=== PATIENT | male | born 1980 | race African-American/Black ===

== ENCOUNTER 2018-12-04 14:58 | Emergency (ER) | payer OTHER ==
[2018-12-04] MEDS ORDERED: PENICILLIN G BENZATHINE 1.2 MILLION UNIT/2 ML DISP.SYRIN IM ONE (17:31)
[2018-12-04] MEDS ORDERED: LIDOCAINE 1% INJ (10 MG/ML) 10 ML MDV INJ ONE (17:31)
[2018-12-04] MEDS ORDERED: AZITHROMYCIN 250 MG TABLET PO ONE (17:31)
[2018-12-04] MEDS ORDERED: CEFTRIAXONE INJ 250 MG VIAL IM ONE (17:31)
--- NOTE | 2018-12-04 17:57 | ER Document Report ---
HPI - HPI Patient complains to provider of: hands hurt Pain Level: 4 Context: 38-year-old male with no past medical history presents to the emergency department with chief complaint of bilateral hand pain that interrupts his sleep, sore fingertips bilaterally, painful package sealer machine, malaise, and fatigue. Patient states that he has not had fevers, chills, shortness of breath or chest pain, dizziness or lightheadedness, abdominal pain, nausea/vomiting/diarrhea/constipation. Patient states that he did have a sore that was painless on his penis several years ago that resolved on its own. - MUSCULOSKELETAL Musculoskeletal: REPORTS: Extremity pain - rhea hands <LANCE KEITA - Last Filed: 12/04/18 18:18> <VERONIQUE PENA - Last Filed: 12/04/18 21:54> - HPI Time Seen by Provider: 12/04/18 17:30 Past Medical History - Social History Smoking Status: Current Every Day Smoker Frequency of alcohol use: None Drug Abuse: None Family History: Reviewed & Not Pertinent Patient has suicidal ideation: No Patient has homicidal ideation: No Renal/ Medical History: Denies: Hx Peritoneal Dialysis <LANCE KEITA - Last Filed: 12/04/18 18:18> Vertical Provider Document - CONSTITUTIONAL Notes: PHYSICAL EXAMINATION: Reviewed vital signs and charting by RN GENERAL: Alert, interacts well. No acute distress. HEAD: Normocephalic, atraumatic. EYES: Pupils equal and round. Extraocular movements intact. ENT: Oral mucosa moist, tongue midline. NECK: Full range of motion. Trachea midline. LUNGS: Clear to auscultation bilaterally, no wheezes, rales, or rhonchi. No respiratory distress. HEART: Regular rate and rhythm. No murmur ABDOMEN: soft, non-tender. No distention. Bowel sounds present EXTREMITIES: Moves all 4 extremities spontaneously. No edema, No cyanosis. PSYCH: Normal affect, normal mood. SKIN: Warm, dry, normal turgor. Patient with a hyperpigmented diffuse macular rash on bilateral palms and soles with sporadic lesions on his arms - INFECTION CONTROL TRAVEL OUTSIDE OF THE [place] 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 Patient states he had a painless sore on his penis years ago. RPR obtained and patient treated prophylactically with penicillin G 2,400,000 units. I also obtained a urine for chlamydia and gonorrhea and treated prophylactically with Rocephin 250 mg IM and azithromycin 1 g p.o. HIV testing also completed. Results pending. 12/04/18 18:18 All results are pending. Patient received treatment for syphilis, gonorrhea, chlamydia. At this time patient is covered. I have given him strict return precautions and ensure that we have a good follow-up number to call him. Patient is stable for discharge. - Vital Signs Vital signs: Temp Pulse Resp BP Pulse Ox 97.5 F 65 18 113/81 98 12/04/18 15:06 12/04/18 15:06 12/04/18 15:06 12/04/18 15:06 12/04/18 15:06 <LANCE KEITA - Last Filed: 12/04/18 18:18> - Re-evaluation Re-evalutation: 12/04/18 21:53 Laboratory 12/04/18 12/04/18 17:30 17:30 Chlamydia DNA (PCR) NOT DETECTED HIV 1&2 Antibody NEGATIVE N.gonorrhoeae DNA (PCR) NOT DETECTED Patient was seen and examined as requested by [facility]. There is concern for secondary syphilis due to a maculopapular rash on the patient's hand and feet. He does report having a painless sore on his penis approximately 3 to 4 months ago. Patient will be treated for syphilis. RPR is pending. PHYSICAL EXAMINATION: GENERAL: Well-appearing, well-nourished and in no acute distress. HEAD: Atraumatic, normocephalic. EYES: Pupils equal round extraocular movements intact, conjunctiva are normal. ENT: Nares patent NECK: Normal range of motion LUNGS: No respiratory distress Musculoskeletal: Normal range of motion NEUROLOGICAL: Normal speech, normal gait. PSYCH: Normal mood, normal affect. SKIN: Macular papular nonblanching rash on the palms and soles - Vital Signs Vital signs: Temp Pulse Resp BP Pulse Ox 97.8 F 72 18 120/68 98 12/04/18 18:39 12/04/18 18:39 12/04/18 18:39 12/04/18 18:39 12/04/18 18:39 <VERONIQUE PENA E - Last Filed: 12/04/18 21:54> Discharge <LIZANDROGERMÁNLANCE ESPARZA - Last Filed: 12/04/18 18:18> <VERONIQUE PENA E - Last Filed: 12/04/18 21:54> - Discharge Clinical Impression: Rash and nonspecific skin eruption, Bilateral hand pain, Malaise, Concern for syphilis Condition: Good Disposition: HOME, SELF-CARE Additional Instructions: You were seen in the emergency department this afternoon for rash on your hand and bilateral hand pain. You have been treated appropriately with antibiotics. No other treatment is necessary at this time. If any of the results of the lab work are positive you will receive a phone call. It is very important that your partner gets tested. Please refrain from sexual contact with your partner until they are tested. Please return to the emergency department if you develop altered mental status, acute shortness of breath or chest pain, intractable nausea or bloody vomitus, profuse diarrhea or bloody diarrhea, or any other concerning symptoms. Forms: Return to Work
[2018-12-04 18:40] VITALS: BP 120/68
[2018-12-04 19:18] LABS: CHLAM PCR NOT DETECTED (NOT DETECT)
== END 2018-12-04 18:40 | disposition home or self-care (01) ==
LOC: ER 14:58
DX: R21 Rash and other nonspecific skin eruption (principal); M79.641 Pain in right hand; M79.642 Pain in left hand; Z20.2 Contact with and (suspected) exposure to infections with a predominantly sexual mode of transmission; R53.81 Other malaise; R53.83 Other fatigue; F17.200 Nicotine dependence, unspecified, uncomplicated
CPT/HCPCS: 99283; 96372; 36415; 86592; 86701; 87491; 87591; J0561; J0696

== ENCOUNTER 2018-12-07 07:28 | Emergency (ER) | payer OTHER ==
[2018-12-07 07:37] VITALS: BP 129/84
--- NOTE | 2018-12-07 08:14 | ER Document Report ---
ED General - General Chief Complaint: Hand Pain Stated Complaint: HAND PAIN Time Seen by Provider: 12/07/18 08:09 TRAVEL OUTSIDE OF THE [place] IN LAST 30 DAYS: No - HPI Notes: 38-year-old male to the emergency department with complaints of right wrist pain that has been ongoing for the past week. States that it has been getting better but he is here for 1 more day off of work to let it rest. 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 Patient states that the hand was swollen and he had tingling into his fingertips but that has gotten better with rest. He was seen here on the for the same and did not have an x-ray at that time. He denies any specific injury and does not want an x-ray today. He is right-hand dominant. He has not been using a splint or any [id number] medicines. - Related Data Allergies/Adverse Reactions: No Known Allergies Allergy (Verified 12/07/18 07:29) Past Medical History - General Information source: Patient - Social History Smoking Status: Current Every Day Smoker Frequency of alcohol use: None Drug Abuse: None Family History: Reviewed & Not Pertinent Patient has suicidal ideation: No Patient has homicidal ideation: No Renal/ Medical History: Denies: Hx Peritoneal Dialysis Review of Systems - Review of Systems Constitutional: denies: Chills, Fever EENT: No symptoms reported Cardiovascular: denies: Chest pain, Palpitations, Syncope, Dizziness, Lightheaded Respiratory: denies: Cough, Short of breath Gastrointestinal: denies: Abdominal pain, Diarrhea, Nausea, Vomiting Genitourinary: No symptoms reported Musculoskeletal: Joint swelling, Muscle pain - Right wrist and hand pain and swelling Skin: No symptoms reported. denies: Rash Neurological/Psychological: Numbness, Tingling - Numbness and tingling down into right fingertips of the index and middle finger -: Yes All other systems reviewed and negative Physical Exam - Vital signs Vitals: Temp Pulse Resp BP Pulse Ox 97.8 F 83 18 129/84 H 97 12/07/18 07:29 12/07/18 07:29 12/07/18 07:29 12/07/18 07:29 12/07/18 07:29 Interpretation: Normal - General General appearance: Appears well, Alert - HEENT Head: Normocephalic, Atraumatic Eyes: Normal Pupils: PERRL - Respiratory Respiratory status: No respiratory distress Chest status: Nontender Breath sounds: Normal Chest palpation: Normal - Cardiovascular Rhythm: Regular Heart sounds: Normal auscultation Murmur: No - Extremities General upper extremity: Normal inspection, Tender - Mild tenderness to palpation over the right wrist joint with no edema, ecchymosis, deformity. Negative Tinel's and negative Phalen's. Computer Numerical Control Operator is 5 out of 5 bilaterally. Nontender to palpation over the right elbow joint as well as the right palm of the hand and to all fingers. Full range of motion in bilateral upper extremity against resistance in flexion extension with 5 out of 5 strength. No snuffbox tenderness mid Shoulder: Normal Arm: Normal Elbow: Normal Forearm: Normal Wrist: Tender. No: Abrasion, Dislocation, Ecchymosis, Navicular tenderness - Neurological Neuro grossly intact: Yes Cognition: Normal Orientation: AAOx4 [place] Coma Scale Eye Opening: Spontaneous Jace Coma Scale Verbal: Oriented Jace Coma Scale Motor: Obeys Commands Jace Coma Scale Total: 15 Speech: Normal Motor strength normal: LUE, RUE, LLE, RLE Sensory: Normal - Psychological Associated symptoms: Normal affect, Normal mood - Skin Skin Temperature: Warm Skin Moisture: Dry Skin Color: Normal Course - Vital Signs Vital signs: Temp Pulse Resp BP Pulse Ox 97.8 F 83 18 129/84 H 97 12/07/18 07:29 12/07/18 07:29 12/07/18 07:29 12/07/18 07:29 12/07/18 07:29 - Transfer of Care Notes: 12/07/18 08:34 Impression: Right wrist and hand pain likely from overuse syndrome. Some aspects of patient's pain suggests possibly an early carpal tunnel syndrome however he has a negative Phalen's and Tinel's. Did offer an x-ray today however patient does not want one. Will place in a Velcro wrist splint and write for NSAIDs. We will give today off and have him return to work thereafter. We will give orthopedic follow-up. Discharge - Discharge Clinical Impression: Right wrist pain, Right hand pain, Overuse injury Condition: Good Disposition: HOME, SELF-CARE Instructions: Muscle Strain ([facility]) Additional Instructions: Wear Splint. Take medicines as prescribed. rest the wrist and hand as much as possible. If pain persists beyond this week, follow up with orhtopedist. Return here immediately if any worsening joint swelling, redness, pus draining from hand, fevers, or any other concerns. Prescriptions: Naproxen [Naprosyn] 500 mg PO BID #20 tablet Forms: Return to Work Referrals: HARRIETT MATTSON MD [ACTIVE STAFF] - Follow up as needed
== END 2018-12-07 08:45 | disposition home or self-care (01) ==
LOC: ER 07:28
DX: T14.90XA Injury, unspecified, initial encounter (principal); X58.XXXA Exposure to other specified factors, initial encounter; M79.18 Myalgia, other site; R20.0 Anesthesia of skin; R20.2 Paresthesia of skin; M25.40 Effusion, unspecified joint; F17.200 Nicotine dependence, unspecified, uncomplicated
CPT/HCPCS: 99283; L3908

== ENCOUNTER 2018-12-20 14:06 | Emergency (ER) | payer SELFPAY ==
[2018-12-20 14:16] VITALS: BP 130/86
== END 2018-12-20 15:45 | disposition left against medical advice (07) ==
LOC: ER 14:06
DX: Z53.21 Procedure and treatment not carried out due to patient leaving prior to being seen by health care provider (principal); M79.641 Pain in right hand; M79.642 Pain in left hand

== ENCOUNTER 2019-05-17 11:01 | Emergency (ER) | payer SELFPAY ==
--- NOTE | 2019-05-17 12:27 | ER Document Report ---
ED Medical Screen (RME) - General Chief Complaint: Chest Pain Stated Complaint: CHEST PAIN Time Seen by Provider: 05/17/19 12:19 Mode of Arrival: Ambulatory Information source: Patient Notes: This 38-year-old male with history of cocaine and vaping presents emergency department with chest pain. Reports it started in his back came to the front. Reports symptoms for the past 2 days. Denies fever vomiting diarrhea. Reports it hurts more when he leans forward or takes a deep breath. Denies history of cardiac disease. I have greeted and performed a rapid initial assessment of this patient. A comprehensive ED assessment and evaluation of the patient, analysis of test results and completion of the medical decision making process will be conducted by additional ED providers. Dictation of this chart was performed using voice recognition software; therefore, there may be some unintended grammatical errors. TRAVEL OUTSIDE OF THE [place] IN LAST 30 DAYS: No - Related Data Allergies/Adverse Reactions: No Known Allergies Allergy (Verified 05/17/19 12:17) Past Medical History - Social History Chew tobacco use (# tins/day): No Frequency of alcohol use: Occasional Drug Abuse: Marijuana Renal/ Medical History: Denies: Hx Peritoneal Dialysis Physical Exam - Vital signs Vitals: Temp Pulse Resp BP Pulse Ox 98.2 F 66 18 128/85 H 99 05/17/19 11:28 05/17/19 11:28 05/17/19 11:28 05/17/19 11:28 05/17/19 11:28 Course - Vital Signs Vital signs: Temp Pulse Resp BP Pulse Ox 98.2 F 66 18 128/85 H 99 05/17/19 12:17 05/17/19 12:17 05/17/19 12:17 05/17/19 12:17 05/17/19 12:17
[2019-05-17 12:49] LABS: ABSOLUTE EOSINOPHILS # (AUTO) 0.1 10^3/uL (0.0-0.6); ABSOLUTE MONOCYTES (AUTO) 0.5 10^3/uL (0.1-1.4); ABSOLUTE NEUT (AUTO) 3.3 10^3/uL (1.7-8.2); BASOPHILS % (AUTO) 0.5 % (0-2); EOSINOPHILS % (AUTO) 1.9 % (0-6); HEMATOCRIT 42.8 % (37.9-51.0); HEMOGLOBIN 14.4 g/dL (13.5-17.0); LYMPHOCYTES % (AUTO) 21.1 % (13-45); MEAN CORPUSCULAR HEMOGLOBIN 30.9 pg (27.0-33.4); MEAN CORPUSCULAR HGB CONC 33.6 g/dL (32.0-36.0); MEAN CORPUSCULAR VOLUME 92 fl (80-97); MONOCYTES % (AUTO) 9.3 % (3-13); PLATELET COUNT 294 10^3/uL (150-450); RED BLOOD COUNT 4.65 10^6/uL (4.35-5.55); RED CELL DISTRIBUTION WIDTH 13.6 % (11.5-14.0); SEGMENTED NEUTROPHILS % (AUTO) 67.2 % (42-78); TOTAL CELLS COUNTED % (AUTO) 100 %; WHITE BLOOD COUNT 4.9 10^3/uL (4.0-10.5)
[2019-05-17 13:03] LABS: ALBUMIN 4.2 g/dL (3.5-5.0); ALKALINE PHOSPHATASE 55 U/L (38-126); ANION GAP 10 (5-19); ASPARTATE AMINO TRANSFERASE 83 U/L (17-59); BILIRUBIN,DIRECT 0.1 mg/dL (0.0-0.4); BILIRUBIN,TOTAL 0.8 mg/dL (0.2-1.3); BLOOD UREA NITROGEN 12 mg/dL (7-20); CALCIUM 9.4 mg/dL (8.4-10.2); CARBON DIOXIDE 29 mmol/L (22-30); CHLORIDE 101 mmol/L (98-107); CREATINE KINASE 122 U/L (55-170); GLUCOSE 87 mg/dL (75-110); POTASSIUM 4.8 mmol/L (3.6-5.0); TOTAL PROTEIN 7.7 g/dL (6.3-8.2)
--- NOTE | 2019-05-17 14:38 | RADIOLOGY REPORT (SQ) ---
EXAM DESCRIPTION: CHEST 2 VIEWS COMPLETED DATE/TIME: 05/17/2019 2:29 pm REASON FOR STUDY: CHEST PAIN COMPARISON: None. EXAM PARAMETERS: NUMBER OF VIEWS: two views TECHNIQUE: PA and lateral views of the chest were obtained. RADIATION DOSE: NA LIMITATIONS: none FINDINGS: LUNGS AND PLEURA: No consolidation, pleural effusion or pneumothorax. MEDIASTINUM AND HILAR STRUCTURES: No mediastinal or hilar contour abnormality. HEART AND VASCULAR STRUCTURES: The cardiac silhouette and pulmonary vasculature are within normal alas its. BONES: No acute findings. HARDWARE: None in the chest. OTHER: No other finding. IMPRESSION: No acute cardiopulmonary process. TECHNICAL DOCUMENTATION: JOB ID: [id number] [employer]- All Rights Reserved Reading location - IP/workstation name: [email or web address]
[2019-05-17 16:55] LABS: APPEARANCE,URINE CLEAR; BILIRUBIN,URINE NEGATIVE (NEGATIVE); COLOR,URINE YELLOW; GLUCOSE, URINE NEGATIVE (NEGATIVE); KETONES,URINE NEGATIVE (NEGATIVE); LEUKOCYTE ESTERASE,URINE NEGATIVE (NEGATIVE); NITRITE,URINE NEGATIVE (NEGATIVE); PROTEIN,URINE NEGATIVE (NEGATIVE); URINE SPECIFIC GRAVITY 1.019
[2019-05-17 17:11] LABS: URINE AMPHETAMINES SCREEN NEGATIVE; URINE BARBITURATES SCREEN NEGATIVE; URINE BENZODIAZEPINES SCREEN NEGATIVE; URINE COCAINE SCREEN NEGATIVE; URINE METHADONE SCREEN NEGATIVE; URINE PHENCYCLIDINE SCREEN NEGATIVE
[2019-05-17 17:17] LABS: URINE MARIJUANA (THC) SCREEN UNCONFIRMED POSITIVE
--- NOTE | 2019-05-17 18:12 | ER Document Report ---
ED Cardiac - General Chief Complaint: Chest Pain Stated Complaint: CHEST PAIN Time Seen by Provider: 05/17/19 12:19 Primary Care Provider: FREDDY HAMM MD [ACTIVE STAFF] - Follow up as needed NAYANA SNYDER MD [ACTIVE STAFF] - Follow up as needed Mode of Arrival: Ambulatory Information source: Patient Notes: Patient reports injecting cocaine 2 days ago. Patient states he developed chest pain 2 days ago and was concerned it was due to his drug use. Patient denies any cough cold symptoms nausea or vomiting. Patient does complain of pain with deep inspiration. No fever. 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 Patient states that he could have some soreness from the exertion. TRAVEL OUTSIDE OF THE [place] IN LAST 30 DAYS: No - HPI Patient complains to provider of: Chest pain. denies: Palpitations, Shortness of breath Use of: Cocaine Chest pain location: Under breast Quality of pain: Pressure Pain level currently: 2 Cardiac risk factors: Smoker. denies: Diabetes, Hypertension, + Family history, Dyslipidemia, Hx CHF, Hx VT Positive cardiac history: No Associated symptoms: denies: Abdominal pain, Diaphoresis, Dizziness, Edema, Fatigue, Fever/chills, Headache, Hypotension, Jaw pain, Lightheaded, Nausea/vomiting, Neck pain, Palpitations, Shortness of breath, Syncope Exacerbated by: Denies Relieved by: Nothing Similar symptoms previously: No Recently seen / treated by doctor: No - Related Data Allergies/Adverse Reactions: No Known Allergies Allergy (Verified 05/17/19 12:17) Past Medical History - General Information source: Patient - Social History Smoking Status: Current Every Day Smoker Chew tobacco use (# tins/day): No Frequency of alcohol use: Occasional Drug Abuse: Cocaine, Heroin, Marijuana Occupation: Foodservice Lives with: Family Family History: Reviewed & Not Pertinent Patient has suicidal ideation: No Patient has homicidal ideation: No - Medical History Medical History: Negative Renal/ Medical History: Denies: Hx Peritoneal Dialysis Surgical Hx: Negative Review of Systems - Review of Systems Constitutional: No symptoms reported. denies: Fever, Weight loss, Recent illness EENT: No symptoms reported Cardiovascular: Chest pain. denies: Palpitations, Heart racing, Dyspnea, Syncope, Dizziness, Lightheaded Respiratory: Hurts to breathe - With deep inspiration. denies: Cough, Short of breath Gastrointestinal: No symptoms reported. denies: Abdominal pain, Vomiting Genitourinary: No symptoms reported. denies: Dysuria, Flank pain Male Genitourinary: No symptoms reported Musculoskeletal: No symptoms reported. denies: Back pain, Neck pain Skin: No symptoms reported Hematologic/Lymphatic: No symptoms reported Neurological/Psychological: No symptoms reported Physical Exam - Vital signs Vitals: Temp Pulse Resp BP Pulse Ox 98.2 F 66 18 128/85 H 99 05/17/19 11:28 05/17/19 11:28 05/17/19 11:28 05/17/19 11:28 05/17/19 11:28 - General General appearance: Appears well, Alert In distress: None - HEENT Head: Normocephalic, Atraumatic Eyes: Normal Conjunctiva: Normal Pupils: PERRL Nasal: Normal Mouth/Lips: Normal Mucous membranes: Normal Pharynx: Normal Neck: Normal, Supple. No: Lymphadenopathy - Respiratory Respiratory status: No respiratory distress Chest status: Tender Breath sounds: Normal Chest palpation: Normal. No: Tender - Cardiovascular Rhythm: Regular Heart sounds: S1 appreciated, S2 appreciated Murmur: No - Abdominal Inspection: Normal Distension: No distension Bowel sounds: Normal Tenderness: Nontender Organomegaly: No organomegaly - Back Back: Normal, Nontender. No: CVA tenderness - Extremities General upper extremity: Normal inspection, Normal ROM General lower extremity: Normal inspection, Normal ROM - Neurological Neuro grossly intact: Yes Cognition: Normal [place] Coma Scale Eye Opening: Spontaneous Jace Coma Scale Verbal: Oriented Jace Coma Scale Motor: Obeys Commands Jace Coma Scale Total: 15 - Psychological Associated symptoms: Normal affect, Normal mood - Skin Skin Temperature: Warm Skin Moisture: Dry Skin Color: Normal Course - Re-evaluation Re-evalutation: 05/17/19 17:[address] Andrade regarding patient presentation, reviewed labs and EKG. Dr. Andrade recommends repeating troponin and if negative may discharge patient at this time. 05/17/19 20:00 Patient's repeat troponin was negative. Patient with a heart score of 1. No concern for PE. The patient has atypical chest pain as the patient's chest pain is not suggestive of pulmonary embolus, cardiac ischemia, aortic dissection, or other serious etiology. Given the extremely low risk of these diagnoses, e valuation for these possibilities does not appear to be indicated at this time. Patient has been instructed to return if the symptoms worsen or change in any way. 05/17/19 20:48 - Vital Signs Vital signs: Temp Pulse Resp BP Pulse Ox 98.3 F 65 18 123/77 100 05/17/19 20:24 05/17/19 20:24 05/17/19 20:24 05/17/19 20:24 05/17/19 20:24 - Laboratory Result Diagrams: 05/17/19 12:14 05/17/19 12:14 Laboratory results interpreted by me: 05/17/19 05/17/19 12:14 16:32 AST 83 H Urine Urobilinogen 2.0 H 05/17/19 20:47 Labs- Entire Visit 05/17/19 05/17/19 05/17/19 12:14 12:14 12:14 WBC 4.9 RBC 4.65 Hgb 14.4 Hct 42.8 MCV 92 MCH 30.9 MCHC 33.6 RDW 13.6 Plt Count 294 Lymph % (Auto) 21.1 [place] % (Auto) 9.3 Eos % (Auto) 1.9 Baso % (Auto) 0.5 Absolute Neuts (auto) 3.3 Absolute Lymphs (auto) 1.0 Absolute Monos (auto) 0.5 Absolute Eos (auto) 0.1 Absolute Basos (auto) 0.0 Seg Neutrophils % 67.2 Sodium 140.0 Potassium 4.8 Chloride 101 Carbon Dioxide 29 Anion Gap 10 BUN 12 Creatinine 1.05 Est GFR ( Amer) > 60 Est GFR (MDRD) Non-Af > 60 Glucose 87 Calcium 9.4 Total Bilirubin 0.8 Direct Bilirubin 0.1 Neonat Total Bilirubin Not Reportable Neonat Direct Bilirubin Not Reportable Neonat Indirect Bili Not Reportable AST 83 H ALT 164 Alkaline Phosphatase 55 Creatine Kinase 122 Troponin I < 0.012 Total Protein 7.7 Albumin 4.2 Urine Color Urine Appearance Urine pH Ur Specific Jeannette Urine Protein Urine Glucose (UA) Urine Ketones Urine Blood Urine Nitrite Urine Bilirubin Urine Urobilinogen Ur Leukocyte Esterase Urine WBC (Auto) Squamous Epi Cells Auto Urine Mucus (Auto) Urine Ascorbic Acid Urine Opiates Screen Urine Methadone Screen Ur Barbiturates Screen Ur Phencyclidine Scrn Ur Amphetamines Screen U Benzodiazepines Scrn Urine Cocaine Screen U Marijuana (THC) Screen 05/17/19 05/17/19 05/17/19 16:32 16:32 19:04 WBC RBC Hgb Hct MCV MCH MCHC RDW Plt Count Lymph % (Auto) [place] % (Auto) Eos % (Auto) Baso % (Auto) Absolute Neuts (auto) Absolute Lymphs (auto) Absolute Monos (auto) Absolute Eos (auto) Absolute Basos (auto) Seg Neutrophils % Sodium Potassium Chloride Carbon Dioxide Anion Gap BUN Creatinine Est GFR ( Amer) Est GFR (MDRD) Non-Af Glucose Calcium Total Bilirubin Direct Bilirubin Neonat Total Bilirubin Neonat Direct Bilirubin Neonat Indirect Bili AST ALT Alkaline Phosphatase Creatine Kinase Troponin I < 0.012 Total Protein Albumin Urine Color YELLOW Urine Appearance CLEAR Urine pH 5.0 Ur Specific Jeannette 1.019 Urine Protein NEGATIVE Urine Glucose (UA) NEGATIVE Urine Ketones NEGATIVE Urine Blood NEGATIVE Urine Nitrite NEGATIVE Urine Bilirubin NEGATIVE Urine Urobilinogen 2.0 H Ur Leukocyte Esterase NEGATIVE Urine WBC (Auto) 0 Squamous Epi Cells Auto <1 Urine Mucus (Auto) FEW Urine Ascorbic Acid NEGATIVE Urine Opiates Screen NEGATIVE Urine Methadone Screen NEGATIVE Ur Barbiturates Screen NEGATIVE Ur Phencyclidine Scrn NEGATIVE Ur Amphetamines Screen NEGATIVE U Benzodiazepines Scrn NEGATIVE Urine Cocaine Screen NEGATIVE U Marijuana (THC) Screen UNCONFIRMED POSITIVE - Diagnostic Test Radiology reviewed: Reports reviewed - EKG Interpretation by Me EKG shows normal: Sinus rhythm Rate: Normal Rhythm: NSR Additional EKG results interpreted by me: 05/17/19 20:[address] elevation, QTc 425 Discharge - Discharge Clinical Impression: Chest pain Qualifiers: Chest pain type: unspecified Qualified Code(s): R07.9 - Chest pain, unspecified Condition: Stable Disposition: HOME, SELF-CARE Instructions: Chest Wall Pain ([facility]), Chest Pain of Unclear Cause ([facility]) Additional Instructions: Return immediately for any new or worsening symptoms Followup with your primary care provider, call tomorrow to make a followup appointment Stop using recreational drugs You were seen today for chest pain. The exact cause of your pain is unclear. However, based on your cardiac enzyme testing, chest x-ray, and EKG it does not appear that it is from an immediately life-threatening cause at this time. Although your testing here is normal is critical that you follow-up with your primary care physician for continued evaluation of this chest pain and possible stress testing. I recommended you see your physician within the next 24-48 hours to be evaluated for consideration of a stress test. Please return to emergency department immediately if you have worsening of your chest pain, shortness of breath, vomiting, become unable to exert yourself due to pain or difficulty breathing, you pass out, or have any pain that radiates into your arms, jaw, or back. Please also return if you have any additional symptoms that are concerning to you. Prescriptions: Naproxen [Naprosyn 250 Nmg Tablet] 1 tab PO BID #14 tablet Forms: Smoking Cessation Education, Return to Work Referrals: FREDDY HAMM MD [ACTIVE STAFF] - Follow up as needed NAYANA SNYDER MD [ACTIVE STAFF] - Follow up as needed
[2019-05-17 20:22] VITALS: BP 123/77
--- NOTE | 2019-05-18 00:03 | EKG REPORT ---
SEVERITY:- ABNORMAL ECG - ATRIAL FIBRILLATION PAIRED VENTRICULAR PREMATURE COMPLEXES BORDERLINE LEFT AXIS DEVIATION ABNORMAL T, CONSIDER ISCHEMIA, LATERAL LEADS : Confirmed by: Heide Lopez MD 18-May-2019 00:02:38
--- NOTE | 2019-05-18 19:11 | EKG REPORT ---
SEVERITY:- NORMAL ECG - SINUS RHYTHM : Confirmed by: Heide Lopez MD 18-May-2019 19:11:02
== END 2019-05-17 20:24 | disposition home or self-care (01) ==
LOC: ER 11:01
DX: R07.89 Other chest pain (principal); R07.1 Chest pain on breathing; F14.10 Cocaine abuse, uncomplicated; F11.10 Opioid abuse, uncomplicated; F12.10 Cannabis abuse, uncomplicated; F17.200 Nicotine dependence, unspecified, uncomplicated
CPT/HCPCS: 36415; 71046; 80053; 80307; 81001; 82550; 84484; 85025; 93005; 93010; 99285

== ENCOUNTER 2019-12-08 05:01 | Emergency (ER) | payer SELFPAY ==
[2019-12-08 09:40] VITALS: BP 122/80
--- NOTE | 2019-12-08 19:18 | EKG REPORT ---
SEVERITY:- ABNORMAL ECG - SINUS RHYTHM PROBABLE LEFT ATRIAL ABNORMALITY LEFT VENTRICULAR HYPERTROPHY : Confirmed by: Tamera Kwong 08-Dec-2019 19:17:35
== END 2019-12-08 11:00 | disposition left against medical advice (07) ==
LOC: ER 05:01
DX: Z53.21 Procedure and treatment not carried out due to patient leaving prior to being seen by health care provider (principal)
CPT/HCPCS: 93005; 93010

== ENCOUNTER 2019-12-09 13:52 | Emergency (ER) | payer SELFPAY ==
[2019-12-09 14:19] VITALS: BP 116/87
--- NOTE | 2019-12-09 14:39 | ER Document Report ---
HPI - HPI Time Seen by Provider: 12/09/19 14:24 Pain Level: 2 Context: Patient is a 39-year-old male who presents the emergency department with a chief complaint of of left foot itchiness. Patient states that he thought he may be got a bug bite and continue to scratch the area. - ROS Systems Reviewed and Negative: Yes All other systems reviewed and negative - CONSTITUTIONAL Constitutional: DENIES: Fever, Chills - NEURO Neurology: DENIES: Weakness - MUSCULOSKELETAL Musculoskeletal: REPORTS: Extremity pain - Left dorsal foot. DENIES: Swelling - DERM Skin Problems: Abrasion - Left dorsal foot Past Medical History - General Information source: Patient - Social History Smoking Status: Current Every Day Smoker Frequency of alcohol use: None Drug Abuse: Marijuana Family History: Reviewed & Not Pertinent Patient has homicidal ideation: No Renal/ Medical History: Denies: Hx Peritoneal Dialysis Vertical Provider Document - CONSTITUTIONAL Agree With Documented VS: Yes Exam Limitations: No Limitations General Appearance: No Apparent Distress - INFECTION CONTROL TRAVEL OUTSIDE OF THE [place] IN LAST 30 DAYS: No - HEENT HEENT: Atraumatic, Normocephalic, PERRLA - RESPIRATORY Respiratory: No Respiratory Distress - CARDIOVASCULAR Cardiovascular: Regular Rate, Regular Rhythm Pulses: Normal: Dorsalis pedis - MUSCULOSKELETAL/EXTREMETIES Musculoskeletal/Extremeties: FROM - NEURO Level of Consciousness: Awake, Alert, Appropriate Motor/Sensory: No Motor Deficit, No Sensory Deficit - DERM Integumentary: Warm, Dry Notes: skin abrasian noted to left dorsal foot Course - Re-evaluation Re-evalutation: 12/09/19 Patient caused a skin abrasion to the dorsal aspect of his left foot due to his scratching. Patient has been instructed to use triple antibiotic ointment and cover the area with a Band-Aid. I also instructed him to take Benadryl for itchiness. He is in agreement with this plan. No concern for fungal infection at this time, as patient sustained a bug bite and then started scratching. Capillary refill less than 3 seconds. Dorsalis pedis and posterior tibial pulses 2+. No vascular compromise noted. Follow-up precautions were given. Verbal discharge instructions were given to the patient. They verbalized understanding. They are stable for discharge. - Vital Signs Vital signs: Temp Pulse Resp BP Pulse Ox 99.2 F 110 H 16 116/87 H 98 12/09/19 14:23 12/09/19 14:17 12/09/19 14:17 12/09/19 14:17 12/09/19 14:17 Discharge - Discharge Clinical Impression: Abrasion of skin Condition: Stable Disposition: HOME, SELF-CARE Additional Instructions: You were seen today in the emergency department for itchiness to your left foot. You can take Benadryl 25 to 50 mg every 4-6 hours as needed for itchiness. Use triple antibiotic or Neosporin to the area. Cover it with a Band-Aid and then cover it with a sock. Forms: Return to Work
== END 2019-12-09 14:41 | disposition home or self-care (01) ==
LOC: ER 13:52
DX: S90.812A Abrasion, left foot, initial encounter (principal); X58.XXXA Exposure to other specified factors, initial encounter; T14.8XXA Other injury of unspecified body region, initial encounter; W57.XXXA Bitten or stung by nonvenomous insect and other nonvenomous arthropods, initial encounter; L29.9 Pruritus, unspecified; F17.200 Nicotine dependence, unspecified, uncomplicated; F12.10 Cannabis abuse, uncomplicated
CPT/HCPCS: 99283